=== PATIENT | male | born 1985 | race American Indian/Alaskan Native ===

== ENCOUNTER 2016-10-14 11:15 | Emergency (ER) | payer BC, OTHER ==
[2016-10-14 11:37] VITALS: BP 152/101
--- NOTE | 2016-10-14 21:09 | Emergency Department Report ---
Entered by JAMES SEGOVIA, acting as scribe for ERNESTO ANDINO PA. ED Male HPI - General Chief complaint: Skin/Abscess/Foreign Body Stated complaint: RASH Time Seen by Provider: 10/14/16 13:17 Source: patient Mode of arrival: Ambulatory Limitations: No Limitations - History of Present Illness Initial comments: 31 y/o male with a PMHx of HTN presents to the ED c/o a penile rash that began 2 days ago. Patient states his symptoms may be due to being in contact with chicken blood while working. Denies itching, scrotum swelling/pain, penile discharge, urinary urgency and frequency, fever, chills, abdominal pain, nausea , vomiting, and dysuria. Denies Hx of similar symptoms. NKDA. OCHOA Complaint: other (penile rash) Onset/Timin -: days(s) Location: penis Radiation: none Severity: mild Severity scale (0 -10): 4 Consistency: constant Improves with: none Worsens with: none denies other symptoms, rash (penile). denies: discharge, swelling, mass, urinary retention, blood in urine, dysuria, fever, nausea/vomiting, incontinence - Related Data Previous Rx's Medication Instructions Recorded Last Taken Type Acetaminophen/Codeine 1 tab PO Q6H PRN #10 tab 06/06/14 Unknown Rx [Acetaminophen-Codeine #3 TAB] Erythromycin [Erythromycin Ophth 1 applic OP BID #1 tube 06/06/14 Unknown Rx Oint] Fluconazole [Diflucan] 150 mg PO ONCE #1 tablet 06/06/14 Unknown Rx Ibuprofen [Motrin] 800 mg PO Q8H PRN #21 tablet 06/06/14 Unknown Rx Doxycycline Monohydrate 100 mg PO BID #10 capsule 10/14/16 Unknown Rx [Doxycycline Monohydrate CAP] Neomycn/Baci Zn/Pmyx Bs/Pramox 1 applic TP BID #1 tube 10/14/16 Unknown Rx [Triple Antibiotic Plus Ointmnt] Allergies Allergy/AdvReac Type Severity Reaction Status Date / Time No Known Allergies Allergy Unverified 06/21/13 11:55 ED Review of Systems Comment: All other systems reviewed and negative Constitutional: denies: chills, fever Eyes: denies: eye pain, eye discharge, vision change ENT: denies: ear pain, throat pain Respiratory: denies: cough, orthopnea, shortness of breath, SOB with exertion, SOB at rest, stridor, wheezing Cardiovascular: denies: chest pain, palpitations, dyspnea on exertion, orthopnea , edema, syncope, paroxysmal nocturnal dyspnea Endocrine: no symptoms reported Gastrointestinal: denies: abdominal pain, nausea, vomiting, diarrhea, constipation, hematemesis, melena, hematochezia Genitourinary: denies: urgency, dysuria, frequency, hematuria, discharge, testicular pain, testicular mass Musculoskeletal: denies: back pain, joint swelling, arthralgia Skin: rash (penile rash). denies: lesions Neurological: denies: headache, weakness, numbness, paresthesias Hematological/Lymphatic: denies: easy bleeding, easy bruising ED Past Medical Hx - Past Medical History Previous Medical History?: Yes Hx Hypertension: Yes (denies) Additional medical history: hx of sty - Surgical History Past Surgical History?: No - Social History Smoking Status: Current Every Day Smoker Substance Use Type: Alcohol - Medications Home Medications: Home Medications Medication Instructions Recorded Confirmed Last Taken Type Acetaminophen/Codeine 1 tab PO Q6H PRN #10 tab 06/06/14 Unknown Rx [Acetaminophen-Codeine #3 TAB] Erythromycin [Erythromycin Ophth 1 applic OP BID #1 tube 06/06/14 Unknown Rx Oint] Fluconazole [Diflucan] 150 mg PO ONCE #1 tablet 06/06/14 Unknown Rx Ibuprofen [Motrin] 800 mg PO Q8H PRN #21 tablet 06/06/14 Unknown Rx Doxycycline Monohydrate 100 mg PO BID #10 capsule 10/14/16 Unknown Rx [Doxycycline Monohydrate CAP] Neomycn/Baci Zn/Pmyx Bs/Pramox 1 applic TP BID #1 tube 10/14/16 Unknown Rx [Triple Antibiotic Plus Ointmnt] ED Physical Exam - General Limitations: No Limitations General appearance: alert, in no apparent distress - Head Head exam: Present: atraumatic, normocephalic - Eye Eye exam: Present: normal appearance, PERRL, EOMI Pupils: Present: normal accommodation - ENT ENT exam: Present: normal exam, mucous membranes moist, normal external ear exam - Neck Neck exam: Present: normal inspection, full ROM. Absent: tenderness, meningismus, lymphadenopathy - Respiratory Respiratory exam: Present: normal lung sounds bilaterally. Absent: respiratory distress, wheezes, rales, rhonchi, stridor, accessory muscle use, decreased breath sounds - Cardiovascular Cardiovascular Exam: Present: regular rate, normal rhythm, normal heart sounds. Absent: systolic murmur, diastolic murmur, rubs, gallop - GI/Abdominal GI/Abdominal exam: Present: soft, normal bowel sounds. Absent: distended, tenderness, guarding, rebound, rigid - exam: Present: other (1 .2 in diameter open healed abrasion on right side of penile shaft). Absent: testicular tenderness, urethral discharge, scrotal swelling, vertical testicular lie, circumcision External exam: Present: other (1 .2 in diameter open healed abrasion on right side of penile shaft). Absent: erythema, swelling, lesions, lacerations, ecchymosis, bleeding - Extremities Exam Extremities exam: Present: normal inspection, full ROM - Back Exam Back exam: Present: normal inspection, full ROM. Absent: tenderness, CVA tenderness (R), CVA tenderness (L) - Neurological Exam Neurological exam: Present: alert, oriented X3, normal gait - Psychiatric Psychiatric exam: Present: normal affect, normal mood - Skin Skin exam: Present: warm, dry, intact, rash (1 .2 in diameter open healed abrasion on right side of penile shaft) ED Course Vital Signs 10/14/16 10/14/16 11:35 14:39 Temperature 98 F Pulse Rate 82 60 Respiratory 16 Rate Blood Pressure 152/101 O2 Sat by Pulse 99 Oximetry ED Medical Decision Making - Medical Decision Making 31 year-old male presents with penile abrasion ED course: Patient will be given 1 dose of Keflex. Discussed the patient Keflex and neosporin medication as prescribed. Discussed the patient to follow instructions as given and follow-up with primary care physician. Discuss his symptoms return or worsen to return to the ED Asymptomatic elevated blood pressure in ED. Discussed the patient to follow-up with primary care for management Vital signs are normal patient is in no acute distress ED Disposition Clinical Impression: Abrasion or friction burn of penis without infection Disposition: - TO HOME OR SELFCARE Is pt being admited?: No Does the pt Need Aspirin: No Condition: Stable Instructions: Genital Herpes Simplex (ED), Abrasion (ED) Prescriptions: Doxycycline Monohydrate [Doxycycline Monohydrate CAP] 100 mg PO BID #10 capsule Neomycn/Baci Zn/Pmyx Bs/Pramox [Triple Antibiotic Plus Ointmnt] 1 applic TP BID #1 tube Referrals: PRIMARY CARE,MD [Primary Care Provider] - 3-[address] [facility] [Outside] - 3-5 Days [facility] [Outside] - 3-5 Days Forms: Accompanied Note, Work/School Release Form(ED) Time of Disposition: 14:23 This documentation as recorded by the LUCA ku JASMINE,accurately reflects the service I personally performed and the decisions made by THU cortes OYINLOLA A, PA.
== END 2016-10-14 14:39 | disposition home or self-care (01) ==
LOC: ED 11:15
DX: S30.812A Abrasion of penis, initial encounter (principal); I10 Essential (primary) hypertension; F17.200 Nicotine dependence, unspecified, uncomplicated; X58.XXXA Exposure to other specified factors, initial encounter; Y93.9 Activity, unspecified; Y99.9 Unspecified external cause status; Y92.89 Other specified places as the place of occurrence of the external cause
CPT/HCPCS: 99282

== ENCOUNTER 2019-07-12 08:09 | Emergency (ER) | payer BC ==
[2019-07-12 08:12] VITALS: BP 147/97
[2019-07-12] MEDS ORDERED: FLUORESCEIN 1 MG STRIP OP ONE (08:44)
[2019-07-12] MEDS ORDERED: TETRACAINE 0.5% OPHTH SOLN 4ML OU ONE (08:45)
--- NOTE | 2019-07-12 09:47 | Emergency Department Report ---
ED Eye Problem HPI - General Chief complaint: Eye Problems Stated complaint: LFT EYE INFECTED Time Seen by Provider: 07/12/19 08:39 Source: patient Mode of arrival: Ambulatory Limitations: No Limitations - History of Present Illness Initial comments: This is a 33-year-old male nontoxic, well nourished in appearance, no acute signs of distress presents to the ED with c/o of left eye redness, foreign body sensation, and pain x1 day. Stated that yesterday he was driving and felt a foreign body to the eye and strated to rub his eye. Patient denies any trauma to the eye. Denies any floaters. Patient denies any visual changes or decreased vision. Patient denies any fever, chills, nausea, vomiting, chest pain, breath, headache, stiff neck numbness or tingling. Patient denies any allergies. MD chief complaint: eye pain, eye redness -: days(s) Onset Description: sudden Location: left eye If Injury: none Eye Symptoms: redness, pain, foreign body sensation Severity: mild Severity scale (0 -10): 3 If Pain, Quality: throbbing Associated Symptoms: none. denies: headache, neck pain, nausea/vomiting, cough, rhinorrhea, fever, shortness of breath - Related Data Previous Rx's Medication Instructions Recorded Last Taken Type Acetaminophen/Codeine 1 tab PO Q6H PRN #10 tab 06/06/14 Unknown Rx [Acetaminophen-Codeine #3 TAB] Erythromycin [Erythromycin Ophth 1 applic OP BID #1 tube 06/06/14 Unknown Rx Oint] Fluconazole [Diflucan] 150 mg PO ONCE #1 tablet 06/06/14 Unknown Rx Ibuprofen [Motrin] 800 mg PO Q8H PRN #21 tablet 06/06/14 Unknown Rx Doxycycline Monohydrate 100 mg PO BID #10 capsule 10/14/16 Unknown Rx [Doxycycline Monohydrate CAP] Neomycn/Bacitrc/Polymyx/Pramox 1 applic TP BID #1 tube 10/14/16 Unknown Rx [Triple Antibiotic Plus Ointmnt] Polymyxin B Sulf/Trimethoprim 2 drops OP TID #1 drops 07/12/19 Unknown Rx [Polytrim Eye Drops] Allergies Allergy/AdvReac Type Severity Reaction Status Date / Time No Known Allergies Allergy Unverified 06/21/13 11:55 ED Review of Systems ROS: Stated complaint: LFT EYE INFECTED Other details as noted in HPI Constitutional: denies: chills, fever Eyes: eye pain. denies: eye discharge, vision change ENT: denies: ear pain, throat pain Respiratory: denies: cough, shortness of breath, wheezing Cardiovascular: denies: chest pain, palpitations Endocrine: no symptoms reported Gastrointestinal: denies: abdominal pain, nausea, diarrhea Genitourinary: denies: urgency, dysuria Musculoskeletal: denies: back pain, joint swelling, arthralgia Skin: denies: rash, lesions Neurological: denies: headache, weakness, paresthesias Psychiatric: denies: anxiety, depression Hematological/Lymphatic: denies: easy bleeding, easy bruising ED Past Medical Hx - Past Medical History Previous Medical History?: Yes Hx Hypertension: Yes Additional medical history: hx of sty - Surgical History Past Surgical History?: No - Social History Smoking Status: Current Every Day Smoker Substance Use Type: Alcohol - Medications Home Medications: Home Medications Medication Instructions Recorded Confirmed Last Taken Type Acetaminophen/Codeine 1 tab PO Q6H PRN #10 tab 06/06/14 Unknown Rx [Acetaminophen-Codeine #3 TAB] Erythromycin [Erythromycin Ophth 1 applic OP BID #1 tube 06/06/14 Unknown Rx Oint] Fluconazole [Diflucan] 150 mg PO ONCE #1 tablet 06/06/14 Unknown Rx Ibuprofen [Motrin] 800 mg PO Q8H PRN #21 tablet 06/06/14 Unknown Rx Doxycycline Monohydrate 100 mg PO BID #10 capsule 10/14/16 Unknown Rx [Doxycycline Monohydrate CAP] Neomycn/Bacitrc/Polymyx/Pramox 1 applic TP BID #1 tube 10/14/16 Unknown Rx [Triple Antibiotic Plus Ointmnt] Polymyxin B Sulf/Trimethoprim 2 drops OP TID #1 drops 07/12/19 Unknown Rx [Polytrim Eye Drops] ED Physical Exam - General Limitations: No Limitations General appearance: alert, in no apparent distress - Head Head exam: Present: atraumatic, normocephalic - Eye Eye exam: Present: normal appearance, PERRL, EOMI. Absent: scleral icterus, conjunctival injection, nystagmus, periorbital swelling, periorbital tenderness - Expanded Eye Exam Expanded Eyelids: Normal Inspection: Left Pupils: Regular, Round: Left, Reactive: Left Sclera/Conjunctival: Normal Inspection: Left Visual acuity (R) = 20/: 15 Visual acuity (L) = 20/: 15 With correction: No - Neck Neck exam: Present: normal inspection, full ROM. Absent: tenderness, meni ngismus, lymphadenopathy - Extremities Exam Extremities exam: Present: normal inspection, full ROM - Back Exam Back exam: Present: normal inspection, full ROM - Neurological Exam Neurological exam: Present: alert, oriented X3, normal gait - Psychiatric Psychiatric exam: Present: normal affect, normal mood - Skin Skin exam: Present: warm, dry, intact, normal color. Absent: rash - Other Other exam information: Under Winslow lamp, I used fluorescein and tetracaine to examine cornea for corneal abrasion or foreign body, negative for foreign body noted upon exam. There was a small little abrasion to lateral right sided of cornea to left eye. ED Course Vital Signs 07/12/19 08:11 Temperature 97.9 F Pulse Rate 87 Respiratory 16 Rate Blood Pressure 147/97 [Left] O2 Sat by Pulse 98 Oximetry - Reevaluation(s) Reevaluation #1: 07/12/19 09:49 Patient is speaking in full sentences with no signs of distress noted. ED Medical Decision Making - Medical Decision Making This is a 33-year-old male that presents with corneal abrasion. Patient is stable and was examined by me. The eye has been irrigated with normal saline. Patient be discharged with Polytrim. Patient was instructed to follow-up with a b2b outside sales representative doctor in 2 days or if symptoms worsen and continue return to emergency room as soon as possible. At time of discharge, the patient does not seem toxic or ill in appearance. No acute signs of distress noted. Patient agrees to discharge treatment plan of care. No further questions noted by the patient. Critical care attestation.: If time is entered above; I have spent that time in minutes in the direct care of this critically ill patient, excluding procedure time. ED Disposition Clinical Impression: Left cornea abrasion Qualifiers: Encounter type: initial encounter Qualified Code(s): S05.02XA - Injury of conjunctiva and corneal abrasion without foreign body, left eye, initial encounter Disposition: - TO HOME OR SELFCARE Is pt being admited?: No Does the pt Need Aspirin: No Condition: Stable Instructions: Corneal Abrasion (ED) Additional Instructions: Follow-up with a b2b outside sales representative doctor in 2 days or if symptoms worsen and continue return to emergency room as soon as possible. Prescriptions: Polymyxin B Sulf/Trimethoprim [Polytrim Eye Drops] 2 drops OP TID #1 drops Referrals: PRIMARY CAREMD [Referring] - 3-5 Days ANTOINE HUTCHINSON MD [Staff Physician] - 3-5 Days [facility] [Provider Group] - 3-5 Days Forms: Work/School Release Form(ED)
== END 2019-07-12 10:13 | disposition home or self-care (01) ==
LOC: ED 08:09
DX: S05.02XA Injury of conjunctiva and corneal abrasion without foreign body, left eye, initial encounter (principal); I10 Essential (primary) hypertension; F17.200 Nicotine dependence, unspecified, uncomplicated; Z79.899 Other long term (current) drug therapy; X58.XXXA Exposure to other specified factors, initial encounter; Y93.89 Activity, other specified; Y92.89 Other specified places as the place of occurrence of the external cause; Y99.8 Other external cause status
CPT/HCPCS: 99284